=== PATIENT | male | born 1995 | race Caucasian/White ===

== ENCOUNTER → 2019-10-27 14:14 | Outpatient (CLI) | payer MEDICAID, SELFPAY ==
[2019-10-29 11:45] LABS: Covid-19 Nasal PCR Sendout UK NOT DETECTED
== END ==
PROVIDERS: PCP Internal Medicine Adolescent Medicine; Visit Provider Nurse Practitioner Family
DX: Z03.818 Encounter for observation for suspected exposure to other biological agents ruled out (principal)
CPT/HCPCS: U0003